=== PATIENT | male | born 1965 | race Caucasian/White ===

== ENCOUNTER 2021-11-25 05:40 | Day surgery (SDC) | payer OTHER, BC ==
[~2021-11-25] VITALS: Ht 177.8 cm; Wt 93.6 kg
[~2021-11-25 05:40] MED LIST: LIPITOR80 MG GT; ZESTRIL20 MG PO; ZYLOPRIM100 MG
--- NOTE | 2021-11-25 07:52 | NUR ---
11/25/21 0752 Gretel Vaughn 0747 PATIENT ARRIVES TO PACU UNRESPONSIVE TO VERBAL STIMULI. RESP EVEN AND UNLABORED, SNORING RESP, MASK AT 6 LITERS, SATS 100%. 0752 PATIENT SLEEPING, SNORING. REACHING FOR MASK AT TIMES. RESP EVEN AND UNLABORED, MASK CONTINUES AT 6 LITERS, SATS 100%.
--- NOTE | 2021-11-25 08:52 | OR ---
[facility] [address], [place] [address] Signed DATE OF OPERATION: 11/25/2021 SURGEON: Nando Monroy MD PREOPERATIVE DIAGNOSES: 1. Daily alcohol use. 2. Daily tobacco use (snuff). 3. Heartburn. 4. Epigastric abdominal pain. 5. Personal history of colonic polyps in 2017. POSTOPERATIVE DIAGNOSES: 1. Mild to moderate diffuse gastritis. 2. Small hiatal hernia. 3. GE junction at 38 cm. 4. Minimal to moderate internal hemorrhoids. PROCEDURES: 1. EGD with CLOtest and biopsies of the antrum at GE junction. 2. Colonoscopy without biopsy. ESTIMATED BLOOD LOSS: None. 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 He was referred to me for upper and lower endoscopy. He likes about 10 beers a day and chew snuff on a daily basis. He has been having heartburn and epigastric abdominal pain. He told me Dr. Sammy Alexandra performed both upper and lower endoscopy back in 2016. He cannot recall the results. Apparently an adenomatous polyp was removed and he was asked to follow up in 5 years. We have been trying to track down those results. Dr. Alexandra has since retired. He gives no family history of colon cancer or polyps. He has no lower GI complaints. In the office, I gave Solomon a pamphlet on both upper and lower endoscopy. He understands the nature of the two tests. There is risk including, but not limited to gas bloating, crampy abdominal pain, bleeding, perforation requiring surgery, and missed diagnosis. We also reviewed the need for monitored anesthesia care given his daily alcohol intake. He had expressed understanding and wished to proceed. PROCEDURE NOTE: Solomon was taken into our endoscopy suite and placed in the supine semi-recumbent Electronically Signed By: NANDO MONROY MD 11/25/21 0852 PATIENT NAME: SOLOMON SMITH OPERATIVE REPORT DATE OF : 63 REPORT #: [id number] PHYSICIAN: NANDO MONROY MD PCP: CHIVO FERNANDO MD REPORT IS CONFIDENTIAL AND NOT TO BE RELEASED WITHOUT AUTHORIZATION [facility] [address], [place] [address] Signed position. He was given monitored anesthesia care to include propofol per our nurse eyelet operator. It proved to be a brown decision as Solomon takes a fair amount of medication for his sedation. The posterior oropharynx was anesthetized with lidocaine spray. A bite block was utilized for the case. The adult gastroscope was introduced and advanced out to the third portion of the duodenum. The duodenum and pyloric channel were unremarkable. His stomach shows mild diffuse erythematous changes throughout. We took a biopsy of the antrum for CLOtest as well as pathologic review. There were no ulcerations. Upon retroflexion of the scope, he has just a small hiatal hernia. The scope was then withdrawn up through the area of the GE junction, which was compliant without stricture. There were no gastric or esophageal varices. He has some inflammatory changes around the Z-line. There was no Matta's mucosa. We went ahead and took a biopsy along the edge of the Z-line. The Z-line measured out 38 cm from the incisors. There was no distal esophagitis. The middle and upper esophagus were unremarkable. The vocal cords and arytenoids were unremarkable. After this, the gas was suctioned out and gastroscope removed. Solomon tolerated the procedure quite well. Solomon was then rotated into the left lateral decubitus position. He was maintained on IV sedation per our nurse eyelet operator. A digital rectal exam was performed and this was unremarkable. He has good sphincter tone. No external hemorrhoids. His prostate is a little indurated but not particularly enlarged. The adult colonoscope was introduced and advanced quite readily up into the cecum itself. He did take a little extra sedation as we advance the scope. His prep was quite excellent. We could easily see the appendiceal orifice and the ileocecal valve. The scope was then slowly withdrawn. We found no pathology throughout his entire colon or rectum. Upon retroflexion of the scope, he does have minimal to moderate internal hemorrhoid columns. After this, the gas was suctioned out and the colonoscope removed. Solomon tolerated the procedure quite well. RECOMMENDATIONS: I will see Solomon back in my office in 7 to 14 days to review his results. He will need every five year colonoscopy followup based on his adenomatous polyp in 2017. Nando Monroy MD ALB/SARMADL /[id number] Electronically Signed By: NANDO MONROY MD 11/25/21 0852 PATIENT NAME: SOLOMON SIMTH OPERATIVE REPORT DATE OF : 63 REPORT #: [id number] PHYSICIAN: NANDO MONROY MD PCP: CHIVO FERNANDO MD REPORT IS CONFIDENTIAL AND NOT TO BE RELEASED WITHOUT AUTHORIZATION [facility] [address] [place], [place] [address] Signed cc: MD Chivo Quiles MD Copies: NANDO MONROY MD, RUSSEL J MD ~ Electronically Signed By: NANDO MONROY MD 11/25/21 0852 PATIENT NAME: SOLOMON SMITH OPERATIVE REPORT DATE OF : 63 REPORT #: [id number] PHYSICIAN: NANDO MONROY MD PCP: CHIVO FERNANDO MD REPORT IS CONFIDENTIAL AND NOT TO BE RELEASED WITHOUT AUTHORIZATION
--- NOTE | 2021-11-28 12:12 | PATH ---
[facility] [address], [place] [address] Signed SPECIMEN(S): A ANTRUM/ANTRAL BIOPSY SPECIMEN(S): B GE JUNCTION SPECIMEN SOURCE: A. ANTRUM/ANTRAL BIOPSY B. GE JUNCTION CLINICAL HISTORY: Personal history of colon polyps; epigastric pain; heartburn. Postop diagnosis: Gastritis FINAL PATHOLOGIC DIAGNOSIS: A. Antrum / antral biopsy: - Gastric antral-type mucosa with focal slight chronic inflammation. - Negative for evidence of helicobacter organisms on routine HE stained sections. B. GE junction: - Benign esophageal mucosa, negative for increased epithelial eosinophils. - Negative for glandular mucosa. - Focal chronic stromal inflammation. JVR;[facility]:C2NR MICROSCOPIC EXAMINATION: Histologic sections of all submitted blocks are examined by light microscopy. These findings, together with the gross examination, support the pathologic diagnosis. GROSS DESCRIPTION: Two specimens are received in two containers, labeled "DB." A. The specimen, labeled "DB, 1," and designated on the requisition "antrum/pylorus biopsy," is received in formalin and consists of one elongated vargas soft tissue fragment that measures 0.8 cm in greatest dimension. The specimen is entirely submitted in cassette (A1). B. The specimen, labeled "DB, 2," and designated on the requisition "EG junction biopsy," is received in formalin and consists of one vargas soft tissue fragment that measures 0.5 cm in greatest dimension. The specimen is entirely submitted in cassette (B1). AI (under the direct supervision of a pathologist) The Gross Description was prepared using a voice recognition system. The report was reviewed for accuracy; however, sound-alike word errors, addition and/or deletions may occur. If there is any PATIENT NAME: SOLOMON SMITH PATHOLOGY DATE OF : 63 REPORT #: [id number] PHYSICIAN: [facility] PCP: CHIVO FERNANDO MD REPORT IS CONFIDENTIAL AND NOT TO BE RELEASED WITHOUT AUTHORIZATION [facility] [address], [place] [address] Signed question about this report, please contact Client Services. PERFORMING LABORATORY: The technical component was performed by [facility], [address] [place] [address] (CLIA# [id number]). Professional interpretation was performed by [facility] - [facility], [address] [place] [id number] (CLIA#: [id number]). Diagnostician: Fredo Norton MD Pathologist Electronically Signed 11/28/2021 Copies: ~ PATIENT NAME: SOLOMON SMITH PATHOLOGY DATE OF : 63 REPORT #: [id number] PHYSICIAN: [facility] PCP: CHIVO FERNANDO MD REPORT IS CONFIDENTIAL AND NOT TO BE RELEASED WITHOUT AUTHORIZATION
== END 2021-11-25 08:25 | disposition home or self-care (01) ==
LOC: DS 05:40 → OPS 05:40 → DS 07:30 → OPS 07:30 → DS 08:00 → OPS 08:25
PROVIDERS: ATTEND Colon & Rectal Surgery
PROC: 0DJD8ZZ Inspection of Lower Intestinal Tract, Via Natural or Artificial Opening Endoscopic (ICD-10-PCS; 2021-11-25)
PROC: 0DB48ZX Excision of Esophagogastric Junction, Via Natural or Artificial Opening Endoscopic, Diagnostic (ICD-10-PCS; principal; 2021-11-25 07:30)
PROC: 0DB68ZX Excision of Stomach, Via Natural or Artificial Opening Endoscopic, Diagnostic (ICD-10-PCS; 2021-11-25 07:30)
DX: K29.50 Unspecified chronic gastritis without bleeding (principal); K44.9 Diaphragmatic hernia without obstruction or gangrene; K64.8 Other hemorrhoids; F10.10 Alcohol abuse, uncomplicated; F17.220 Nicotine dependence, chewing tobacco, uncomplicated; Z86.010 Personal history of colon polyps; I10 Essential (primary) hypertension; E78.2 Mixed hyperlipidemia
CPT/HCPCS: 36415; 87077; J0690; J2001; J2704; J7121